=== PATIENT | male | born 1995 | race Caucasian/White ===

== ENCOUNTER 2017-06-02 12:06 | Emergency (ER) | payer OTHER ==
[2017-06-02 12:14] VITALS: BP 126/78
[2017-06-02] MEDS ORDERED: LIDOCAINE 2% 10 ML MDV ONE (12:34)
--- NOTE | 2017-06-02 12:53 | ED Physician Documentation ---
History of Present Illness - Stated complaint Stated Complaint: L ARM LAC - Chief complaint Chief Complaint: Laceration - History obtained from History obtained from: Patient (Patient is a 22-year-old [id number] male with no past medical history and tetanus prophylaxis less than 5 years who presents with a laceration to the left volar aspect of his forearm. It occurred slightly prior to arrival. This is a knife type wound that occurred when he was trying to open his [employer] container at work. He denies any numbness or tingling or loss of function distal to the laceration. Review of systems: For pertinent positive and negative questions for the review of systems please see history of present illness. Otherwise all other systems have been reviewed and are negative. Dragon disclaimer: Parts of this medical record were created using voice recognition technology. Because of the inherent limitations of this system occasional same sounding word substitutions do occur and persist despite proofreading. Please read the document for context.) PD PAST MEDICAL HISTORY - Past Surgical History Past Surgical History: No - Present Medications Home Medications: Ambulatory Orders Medication Instructions Recorded Confirmed No Known Home Medications [No 07/01/16 06/02/17 Known Home Medications] - Allergies Allergies/Adverse Reactions: Allergies Allergy/AdvReac Type Severity Reaction Status Date / Time No Known Drug Allergies Allergy Verified 07/01/16 19:30 - Social History Does the pt smoke?: No Smoking Status: Never smoker Does the pt drink ETOH?: No Does the pt have substance abuse?: No - Immunizations Immunizations are current?: Yes Immunizations: TDAP current <10years PD ED PE NORMAL - Vitals Vital signs reviewed: Yes - General General: Alert and oriented X 3, No acute distress, Well developed/nourished - Extremities Extremities: Other (On examination of the left forearm he has a 3.5 cm straight clean partial-thickness laceration approximately mid forearm that is transverse. Distally there is good coloration, pulses, normal tendon function.) Results - Vitals Vitals: Vital Signs - 24 hr 06/02/17 12:10 Temperature 36.9 C Heart Rate 72 Respiratory 18 Rate Blood Pressure 126/78 O2 Saturation 100 Oxygen O2 Source Room air PD MEDICAL DECISION MAKING - ED course ED course: Patient is a well-appearing 22-year-old man with a 3.5 cm laceration to left forearm. It is a shallow laceration through the epidermis and dermis but not deep to the fascia. The wound was cleansed, irrigated and anesthetized with lidocaine. He was then cleaned additionally with chlorhexidine. 6 single interrupted sutures of 5 oh Ethicon were users good approximation and hemostasis. Tetanus prophylaxis or antibiotics are not needed. The patient is released to regular duty. Disposition: To home Clinical impression: 1. 3.5 cm laceration left volar forearm status post suture closure Departure - Departure Disposition: 01 Home, Self Care Clinical Impression: Laceration Condition: Good Instructions: ED Laceration All Comments: Keep covered, clean, and dry. He may apply topical antibiotic ointment. Sutures should come out in 7-10 days
[2017-06-02] MEDS ORDERED: BACITRACIN OINT TOP ONE (12:56)
== END 2017-06-02 13:10 | disposition home or self-care (01) ==
LOC: ED 12:06
DX: S51.812A Laceration without foreign body of left forearm, initial encounter (principal); W26.0XXA Contact with knife, initial encounter; Y99.0 Civilian activity done for income or pay
CPT/HCPCS: 1040M; 12002; 99282; 99283; A9270

== ENCOUNTER 2017-11-12 21:42 | Emergency (ER) | payer OTHER ==
[2017-11-12 21:51] VITALS: BP 137/62
[2017-11-12] MEDS ORDERED: BACITRACIN OINT TOP STA (22:01)
[2017-11-12] MEDS ORDERED: HYDROcod/ACET 5/325 Prepack 6 PO STA (22:01)
--- NOTE | 2017-11-12 22:04 | ED Physician Documentation ---
PD HPI MAJOR BURN - Stated complaint Stated Complaint: HAND BURN - Chief complaint Chief Complaint: Ext Problem - History obtained from History obtained from: Patient, Family - History of Present Illness Timing - onset: Other (Right-handed gentleman, up-to-date on tetanus. He was at work tonight and got splashed with hot grease to the right hand and then grab something hot is a reaction and has francis to the right palm. No other injuries. Pain was severe but is now mild to moderate.) Review of Systems Constitutional: reports: Reviewed and negative Throat: reports: Reviewed and negative Cardiac: reports: Reviewed and negative PD PAST MEDICAL HISTORY - Past Medical History Past Medical History: No - Past Surgical History Past Surgical History: No - Present Medications Home Medications: Ambulatory Orders Medication Instructions Recorded Confirmed Bacitracin Zinc 2 gm TP BID #1 oint...g. 11/12/17 HYDROcod/ACETAM 5/325 [[place] 5/325] 1 - 2 ea PO Q6H PRN #10 tablet 11/12/17 - Allergies Allergies/Adverse Reactions: Allergies Allergy/AdvReac Type Severity Reaction Status Date / Time No Known Drug Allergies Allergy Verified 07/01/16 19:30 - Social History Does the pt smoke?: No Smoking Status: Never smoker Does the pt drink ETOH?: No Does the pt have substance abuse?: No - Immunizations Immunizations are current?: Yes Immunizations: TDAP current <10years - POLST Patient has POLST: No PD ED PE NORMAL - Vitals Vital signs reviewed: Yes - General General: Alert and oriented X 3, No acute distress - Abdomen Abdomen: Normal bowel sounds, Soft, Non tender - Extremities Extremities: Other (Scattered first and second-degree francis on the palm sparing the fingers, nothing circumferential.) - Neuro Neuro: Alert and oriented X 3, Normal speech - Psych Psych: Normal mood, Normal affect Results - Vitals Vitals: Vital Signs - 24 hr 11/12/17 11/12/17 21:46 21:51 Temperature 37.0 C Heart Rate 73 Respiratory 18 Rate Blood Pressure 137/62 H O2 Saturation 97 Oxygen O2 Source Room air Departure - Departure Disposition: 01 Home, Self Care Clinical Impression: Burn of right hand Qualifiers: Encounter type: initial encounter Burn of hand location: palm Burn degree: partial thickness (2nd degree) Qualified Code(s): T23.251A - Burn of second degree of right palm, initial encounter Condition: Good Record reviewed to determine appropriate education?: Yes Instructions: ED Burn D 2nd Prescriptions: Bacitracin Zinc 2 gm TP BID #1 oint...g. HYDROcod/ACETAM 5/325 [[place] 5/325] 1 - 2 ea PO Q6H PRN #10 tablet PRN Reason: Pain Comments: You can wash briefly with soap and water. Do the stretches to prevents loss of range of motion as you were shown extending the fingers. Return if worse or if he developed large blisters. Follow-up with your doctor in 3 days for wound check otherwise. Keep it dressed as shown with the bacitracin ointment under wrapping, not too tight. Elevated as well. Do not drink or drive while taking narcotic pain medication. Note that many narcotic pain relievers also contain Tylenol/acetaminophen. Please ensure that your total dose of acetaminophen from all sources does not exceed 3 g (3000 mg) per day. You may get constipated while on this medication. Take a stool softener such as Colace twice a day while you are on it. Also add an alkj-sep-zzlykeu laxative such as senna or MiraLAX on any day that you do not have a bowel movement. If you received a narcotic pain medication or sedative while in the emergency department, do not drive for the next 24 hours. Forms: Activity restrictions
== END 2017-11-12 22:09 | disposition home or self-care (01) ==
LOC: ED 21:42
DX: T23.251A Burn of second degree of right palm, initial encounter (principal); T31.0 Burns involving less than 10% of body surface; X10.2XXA Contact with fats and cooking oils, initial encounter; Y99.0 Civilian activity done for income or pay
CPT/HCPCS: 1040M; 99283; A9270

== ENCOUNTER 2018-09-14 14:14 | Emergency (ER) | payer SELFPAY ==
[2018-09-14] MEDS ORDERED: DEXAMETHASONE 10 MG/ML VIAL PO STA (14:47)
--- NOTE | 2018-09-14 14:49 | ED Physician Documentation ---
PD HPI URI - Stated complaint Stated Complaint: THROAT PX/NECK PX - Chief complaint Chief Complaint: General - History obtained from History obtained from: Patient, Family - History of Present Illness Timing - onset: How many days ago (4) Timing duration: Days (4) Timing details: Gradual onset, Still present Associated symptoms: Chills, Ear pain, Nasal congestion, Rhinorrhea, Sore throat, Dry cough Contributing factors: Sick contact (mother sick with similar) Improves by: Rest Similar symptoms before: Has not had sx before Recently seen: Not recently seen - Additional information Additional information: Previously well 23-year-old male has developed a cough and congestion about 4 days ago. He has developed a sore throat along with this and feels fatigued. He called off work today. His mother is sick with similar and she is usually required a course of antibiotic for resolution of her symptoms. She is in the emergency department today with her son. Review of Systems Constitutional: reports: Myalgias, Fatigue. denies: Fever Eyes: denies: Decreased vision Ears: reports: Ear pain Nose: reports: Rhinorrhea / runny nose, Congestion Throat: reports: Sore throat Cardiac: denies: Chest pain / pressure, Palpitations Respiratory: reports: Cough. denies: Dyspnea GI: denies: Vomiting PD PAST MEDICAL HISTORY - Past Medical History Past Medical History: No - Past Surgical History Past Surgical History: No - Present Medications Home Medications: Ambulatory Orders Medication Instructions Recorded Confirmed Azithromycin [Zithromax] 250 mg PO DAILY #6 tablet 09/14/18 - Allergies Allergies/Adverse Reactions: Allergies Allergy/AdvReac Type Severity Reaction Status Date / Time No Known Drug Allergies Allergy Verified 09/14/18 14:29 - Social History Does the pt smoke?: No Smoking Status: Never smoker Does the pt drink ETOH?: Yes Does the pt have substance abuse?: No - Immunizations Immunizations are current?: Yes Immunizations: TDAP current <10years - POLST Patient has POLST: No PD ED PE NORMAL - Vitals Vital signs reviewed: Yes (hypertensive mild ) - General General: Alert and oriented X 3, No acute distress, Well developed/nourished - HEENT HEENT: Atraumatic, PERRL, EOMI, Ears normal, Moist mucous membranes, Other (tonsils are 2 + with exudate ) - Neck Neck: Supple, no meningeal sign, No bony TTP, Other (tender submandibular adenopathy ) - Cardiac Cardiac: RRR, No murmur - Respiratory Respiratory: No respiratory distress, Clear bilaterally - Abdomen Abdomen: Soft, Non tender - Back Back: No CVA TTP, No spinal TTP - Derm Derm: Normal color, Warm and dry, No rash - Extremities Extremities: No deformity, No edema - Neuro Neuro: Alert and oriented X 3, wafer batter mixer 2-12 intact, No motor deficit, No sensory deficit, Normal speech Eye Opening: Spontaneous Motor: Obeys Commands Verbal: Oriented GCS Score: 15 - Psych Psych: Normal mood, Normal affect Results - Vitals Vitals: Vital Signs - 24 hr 09/14/18 14:27 Temperature 36.7 C Heart Rate 88 Respiratory 16 Rate Blood Pressure 138/75 H O2 Saturation 96 Oxygen O2 Source Room air PD MEDICAL DECISION MAKING - ED course Complexity details: reviewed old records, considered differential, d/w patient, d/w family ED course: 23-year-old male with an upper respiratory infection has 2+ exudative tonsils. He does not appear to have otitis media he does have some bronchitis. He is administered a dose of dexamethasone here in the emergency department we will place him on a Z-Jonnie. Departure - Departure Disposition: 01 Home, Self Care Clinical Impression: Tonsillitis Instructions: ED Tonsillitis Follow-Up: Your, doctor [Other] Prescriptions: Azithromycin [Zithromax] 250 mg PO DAILY #6 tablet
[2018-09-14 15:28] VITALS: BP 114/90
== END 2018-09-14 15:27 | disposition home or self-care (01) ==
LOC: ED 14:14
DX: J03.90 Acute tonsillitis, unspecified (principal); J40 Bronchitis, not specified as acute or chronic
CPT/HCPCS: 99283

== ENCOUNTER 2018-11-07 12:30 | Emergency (ER) | payer MEDICAID ==
[2018-11-07] MEDS ORDERED: ONDANSETRON ODT 4 MG TABLET TL STA (12:48)
[2018-11-07] MEDS ORDERED: IBUPROFEN 800 MG TABLET PO STA (12:48)
--- NOTE | 2018-11-07 12:49 | ED Physician Documentation ---
PD HPI PED ILLNESS - Stated complaint Stated Complaint: FEVER/CHILLS/HEADACHE/THROAT PX - Chief complaint Chief Complaint: General - History obtained from History obtained from: Patient - History of Present Illness Timing - onset: Last night (This is an otherwise healthy 23-year-old male Who became abruptly ill last night with body aches, hot and cold chills, sore throat, and headache with some nausea but no vomiting. 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 No recent travel.) Review of Systems Constitutional: reports: Fever, Chills, Myalgias, Fatigue Ears: denies: Ear pain Nose: denies: Rhinorrhea / runny nose Throat: reports: Sore throat GI: reports: Nausea. denies: Abdominal Pain, Vomiting, Diarrhea PD PAST MEDICAL HISTORY - Past Surgical History Past Surgical History: No - Present Medications Home Medications: Ambulatory Orders Medication Instructions Recorded Confirmed Ibuprofen [Motrin] 800 mg PO Q8H PRN #30 tablet 11/07/18 Ondansetron Odt [Zofran] 4 mg TL Q6H PRN #10 tablet 11/07/18 - Allergies Allergies/Adverse Reactions: Allergies Allergy/AdvReac Type Severity Reaction Status Date / Time No Known Drug Allergies Allergy Verified 11/07/18 12:40 - Social History Does the pt smoke?: No Smoking Status: Never smoker Does the pt drink ETOH?: Yes Does the pt have substance abuse?: No - Immunizations Immunizations are current?: Yes Immunizations: TDAP current <10years - POLST Patient has POLST: No PD ED PE NORMAL - Vitals Vital signs reviewed: Yes - General General: Alert and oriented X 3, No acute distress - HEENT HEENT: Pharynx benign - Neck Neck: Supple, no meningeal sign, No bony TTP, No adenopathy - Cardiac Cardiac: RRR, No murmur - Respiratory Respiratory: No respiratory distress, Clear bilaterally - Abdomen Abdomen: Non tender - Derm Derm: Normal color, Warm and dry - Neuro Neuro: Alert and oriented X 3, Normal speech - Psych Psych: Normal mood, Normal affect Results - Vitals Vitals: Vital Signs - 24 hr 11/07/18 12:38 Temperature 37.2 C Heart Rate 90 Respiratory 20 Rate Blood Pressure 140/76 H O2 Saturation 97 Oxygen O2 Source Room air - Labs Labs: Laboratory Tests 11/07/18 11/07/18 12:45 12:45 Influenza A (Rapid) Negative Influenza B (Rapid) Negative Group A Strep Rapid Negative PD MEDICAL DECISION MAKING - ED course ED course: This is a 23-year-old gentleman with symptoms consistent with viral or flulike syndrome. There is no evidence of toxicity. No meningismus. No abdominal tenderness. Flu and strep swabs were negative. Conservative care but watchful waiting was advised. Departure - Departure Disposition: Home, Self Care Clinical Impression: Viral syndrome Condition: Good Record reviewed to determine appropriate education?: Yes Instructions: ED Viral Syndrome Prescriptions: Ibuprofen [Motrin] 800 mg PO Q8H PRN #30 tablet PRN Reason: PAIN &/OR FEVER Ondansetron Odt [Zofran] 4 mg TL Q6H PRN #10 tablet PRN Reason: Nausea / Vomiting Comments: Return for any new or worsening symptoms, or if not better in 3 days. Your blood pressure was elevated today on check into the emergency department. This does not mean that you have hypertension, it is a common phenomenon to come to the emergency department and have elevated blood pressure. I recommend that you see your primary care physician within the week to have it rechecked when you are feeling better. Forms: Activity restrictions
[2018-11-07 13:28] VITALS: BP 132/76
== END 2018-11-07 13:28 | disposition home or self-care (01) ==
LOC: ED 12:30
DX: B34.9 Viral infection, unspecified (principal); R03.0 Elevated blood-pressure reading, without diagnosis of hypertension
CPT/HCPCS: 87070; 87275; 87276; 87430; 99283; A9270; Q0162

== ENCOUNTER 2018-11-22 10:55 | Emergency (ER) | payer MEDICAID ==
[2018-11-22 11:38] VITALS: BP 128/80
--- NOTE | 2018-11-22 12:40 | ED Physician Documentation ---
History of Present Illness - Stated complaint Stated Complaint: R EAR CLOGGED - Chief complaint Chief Complaint: Heent - History obtained from History obtained from: Patient - History of Present Illness Timing: Yesterday Pain level max: 8 Pain level now: 8 Improved by: nothing Worsened by: nothing - Additonal information Additional information: 23-year-old male with pain and muffled hearing to the right ear. Ongoing since yesterday. No fevers. No rhinorrhea, no congestion, no sore throat. Review of Systems Constitutional: denies: Fever, Chills Nose: denies: Rhinorrhea / runny nose, Congestion Respiratory: denies: Cough GI: denies: Nausea, Vomiting Skin: denies: Rash PD PAST MEDICAL HISTORY - Past Medical History Past Medical History: No - Past Surgical History Past Surgical History: No - Present Medications Home Medications: Ambulatory Orders Medication Instructions Recorded Confirmed Acetaminophen [Tylenol] 11/22/18 - Allergies Allergies/Adverse Reactions: Allergies Allergy/AdvReac Type Severity Reaction Status Date / Time No Known Drug Allergies Allergy Verified 11/22/18 11:38 - Social History Does the pt smoke?: No Smoking Status: Never smoker Does the pt drink ETOH?: Yes Does the pt have substance abuse?: No - Immunizations Immunizations are current?: Yes Immunizations: TDAP current <10years - POLST Patient has POLST: No PD ED PE NORMAL - Vitals Vital signs reviewed: Yes - General General: Alert and oriented X 3, No acute distress - HEENT HEENT: Moist mucous membranes, Other (L ear normal - R TM is obscured by impacted wax. ) - Neck Neck: Supple, no meningeal sign - Derm Derm: Warm and dry - Neuro Neuro: Alert and oriented X 3 Results - Vitals Vitals: Vital Signs - 24 hr 11/22/18 11:36 Temperature 36.4 C L Heart Rate 73 Respiratory 66 H Rate Blood Pressure 128/80 O2 Saturation 98 Oxygen O2 Source Room air PD MEDICAL DECISION MAKING - ED course Complexity details: considered differential, d/w patient ED course: 23-year-old male with cerumen impaction of the right ear. Her oxygen removed and feels better. Will follow up with PCP. Patient counseled regarding signs and symptoms for which I believe and urgent re-evaluation would be necessary. Patient with good understanding of and agreement to plan and is comfortable going home at this time This document was made in part using voice recognition software. While efforts are made to proofread this document, sound alike and grammatical errors may occur. Departure - Departure Disposition: 01 Home, Self Care Clinical Impression: Impacted cerumen of right ear Condition: Good Instructions: ED Earwax Removal, ED Wax Ear Home Removal Follow-Up: Provider,Other [Primary Care Provider] - As Needed Comments: Return if you worsen. Follow-up with your doctor for further care.
== END 2018-11-22 12:47 | disposition home or self-care (01) ==
LOC: ED 10:55
DX: H61.21 Impacted cerumen, right ear (principal)
CPT/HCPCS: 69209; 99282; 99283

== ENCOUNTER 2018-12-09 12:58 | Emergency (ER) | payer MEDICAID ==
[2018-12-09 13:26] LABS: BILIRUBIN,URINE NEGATIVE (NEGATIVE); GLUCOSE, URINE (UA) NEGATIVE (NEGATIVE); KETONES,URINE (UA) NEGATIVE (NEGATIVE); LEUKOCYTE ESTERASE, URINE NEGATIVE (NEGATIVE); NITRITE,URINE NEGATIVE (NEGATIVE); OCCULT BLOOD,URINE NEGATIVE (NEGATIVE); PROTEIN,URINE NEGATIVE (NEGATIVE); UROBILINOGEN,URINE 0.2 (NORMAL) E.U./dL (NORMAL)
[2018-12-09 13:28] LABS: CLARITY,URINE CLEAR (CLEAR)
[2018-12-09] MEDS ORDERED: cefTRIAXone 250 MG VIAL IM ONE (15:57)
[2018-12-09] MEDS ORDERED: LIDOCAINE 1% 2 ML VIAL SUBQ ONE (15:57)
[2018-12-09] MEDS ORDERED: AZITHROMYCIN 250 MG TABLET PO STA (15:57)
--- NOTE | 2018-12-09 15:59 | ED Physician Documentation ---
History of Present Illness - Stated complaint Stated Complaint: MALE - Chief complaint Chief Complaint: General - History obtained from History obtained from: Patient - History of Present Illness Timing: Other (About a week's worth of urinary frequency and burning at the tip when he urinates without discharge, pelvic pain, or flank pain. He admits to a history of sexual promiscuity.) Review of Systems Constitutional: reports: Reviewed and negative Cardiac: reports: Reviewed and negative Respiratory: reports: Reviewed and negative PD PAST MEDICAL HISTORY - Past Medical History Past Medical History: No Cardiovascular: None Respiratory: None Neuro: None Endocrine/Autoimmune: None GI: None : Nocturia, Frequency HEENT: None Psych: None Musculoskeletal: None Derm: None - Past Surgical History Past Surgical History: No - Present Medications Home Medications: Ambulatory Orders Medication Instructions Recorded Confirmed Acetaminophen [Tylenol] 11/22/18 - Allergies Allergies/Adverse Reactions: Allergies Allergy/AdvReac Type Severity Reaction Status Date / Time No Known Drug Allergies Allergy Verified 11/22/18 11:38 - Social History Does the pt smoke?: No Smoking Status: Never smoker Does the pt drink ETOH?: Yes Does the pt have substance abuse?: Yes Substance Use and Type: Marijuana - Immunizations Immunizations are current?: Yes Immunizations: TDAP current <10years - POLST Patient has POLST: No PD ED PE NORMAL - Vitals Vital signs reviewed: Yes - General General: Alert and oriented X 3, No acute distress - Abdomen Abdomen: Soft, Non tender - Back Back: No CVA TTP - Neuro Neuro: Alert and oriented X 3, Normal speech Results - Vitals Vitals: Vital Signs - 24 hr 12/09/18 12/09/18 13:06 15:09 Temperature 36 C L Heart Rate 62 66 Respiratory 16 16 Rate Blood Pressure 131/72 H 140/71 H O2 Saturation 97 99 Oxygen O2 Source Room air - Labs Labs: Laboratory Tests 12/09/18 13:19 Urine Color YELLOW Urine Clarity CLEAR Urine pH 6.0 Ur Specific [place] >=1.030 H Urine Protein NEGATIVE Urine Glucose (UA) NEGATIVE Urine Ketones NEGATIVE Urine Occult Blood NEGATIVE Urine Nitrite NEGATIVE Urine Bilirubin NEGATIVE Urine Urobilinogen 0.2 (NORMAL) Ur Leukocyte Esterase NEGATIVE Ur Microscopic Review NOT INDICATED Urine Culture Comments NOT INDICATED Departure - Departure Disposition: 01 Home, Self Care Clinical Impression: Urethritis Condition: Good Record reviewed to determine appropriate education?: Yes Instructions: ED Urethritis Infec Vs Inflam Male Comments: As discussed we are testing and treating for STDs that cause this clinical syndrome including chlamydia and gonorrhea. You are completely treated for either but we will still call if the test come is up positive. Your blood pressure was elevated today on check into the emergency department. This does not mean that you have hypertension, it is a common phenomenon to come to the emergency department and have elevated blood pressure. I recommend that you see your primary care physician within the week to have it rechecked when you are feeling better.
[2018-12-09 16:02] VITALS: BP 128/75
== END 2018-12-09 16:24 | disposition home or self-care (01) ==
LOC: ED 12:58
DX: N34.2 Other urethritis (principal); R03.0 Elevated blood-pressure reading, without diagnosis of hypertension
CPT/HCPCS: 81003; 87491; 87591; 96372; 99283; A9270; 81001; 87086

== ENCOUNTER 2019-04-23 16:39 | Emergency (ER) | payer MEDICAID ==
--- NOTE | 2019-04-23 17:19 | ED Physician Documentation ---
PD HPI MALE - Stated complaint Stated Complaint: MALE /NO SYMPTOMS - Chief complaint Chief Complaint: General - History obtained from History obtained from: Patient - History of Present Illness Timing - onset: How many weeks ago (2) Timing - duration: Weeks (2) Timing - details: Gradual onset Associated symptoms: Genital sore / lesion (noted redness and some tender along base of glans that has been there for 2 weeks, soon after having unprotected intercourse. Concerned about STD. No vesicles.). No: Dysuria, Urinary frequency PD HPI MALE CONTRIB FACTORS: Sexually active. No: Exposed to STD (no known exposure but had unprotected intercourse with new partner) Similar symptoms before: Has not had sx before Recently seen: Not recently seen Review of Systems Constitutional: denies: Fever Throat: denies: Oral lesions / sores, Sore throat : denies: Dysuria, Discharge Skin: reports: Rash PD PAST MEDICAL HISTORY - Past Medical History Past Medical History: No Cardiovascular: None Respiratory: None Neuro: None Endocrine/Autoimmune: None GI: None : None HEENT: None Psych: None Musculoskeletal: None Derm: None - Past Surgical History Past Surgical History: No - Present Medications Home Medications: Ambulatory Orders Medication Instructions Recorded Confirmed Acetaminophen [Tylenol] 11/22/18 Terbinafine HCl [Terbinafine] 1 applic TP TID #15 cream..g. 04/23/19 - Allergies Allergies/Adverse Reactions: Allergies Allergy/AdvReac Type Severity Reaction Status Date / Time No Known Drug Allergies Allergy Verified 04/23/19 16:44 - Social History Does the pt smoke?: No Smoking Status: Never smoker Does the pt drink ETOH?: Yes Does the pt have substance abuse?: No - Immunizations Immunizations are current?: Yes Immunizations: TDAP current <10years - POLST Patient has POLST: No PD ED PE NORMAL - Vitals Vital signs reviewed: Yes - General General: Alert and oriented X 3, Well developed/nourished - Male Male : Other (meatus normal. There is mild redness with sensitive but no vesicles nor skin breakdown along dorsal and side area of the base of the glans. scrotum normal. ) - Derm Derm: Normal color, Warm and dry Results - Vitals Vitals: Vital Signs - 24 hr 04/23/19 04/23/19 16:42 18:15 Temperature 37.0 C Heart Rate 78 64 Respiratory 14 12 Rate Blood Pressure 136/85 H 126/71 O2 Saturation 97 100 Oxygen O2 Source Room air - Labs Labs: Laboratory Tests 04/23/19 16:50 Chlam trachomat DNA PCR NEGATIVE N.gonorrhoeae DNA (PCR) NEGATIVE T. vaginalis (PCR) NEGATIVE PD MEDICAL DECISION MAKING - ED course Complexity details: considered differential (concerned about STD, with some redness and tenderness along base of glans. Clinically looks like mild candidal skin infection. Does not look herpetic. Did meatal swab to screen for STDs. ), d/w patient Departure - Departure Disposition: Home, Self Care Clinical Impression: Candidal balanitis Condition: Stable Record reviewed to determine appropriate education?: Yes Prescriptions: Terbinafine HCl [Terbinafine] 1 applic TP TID #15 cream..g. Comments: I think the red area looks more like a skin infection, likely yeast. It does not look herpetic. We did do a test for GC and chlamydia that will result in a few days and will call you if it is positive. At this point use an antifungal ointment to the area around the base of the glands 3 times a day and till cleared. It should clear in 2-3 days. Discharge Date/Time: 04/23/19 18:24
[2019-04-23 18:17] VITALS: BP 126/71
[2019-04-23 21:48] LABS: TRICHOMONAS VAGINALIS DNA NEGATIVE (NEGATIVE)
== END 2019-04-23 18:24 | disposition home or self-care (01) ==
LOC: ED 16:39
DX: B37.42 Candidal balanitis (principal)
CPT/HCPCS: 87491; 87591; 87661; 99283

== ENCOUNTER 2019-12-08 15:23 | Emergency (ER) | payer MEDICAID ==
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
[2019-12-08] MEDS ORDERED: cefTRIAXone 250 MG VIAL IM STA (16:58)
[2019-12-08] MEDS ORDERED: LIDOCAINE 1% 2 ML VIAL MC ONE (16:58)
[2019-12-08] MEDS ORDERED: AZITHROMYCIN 250 MG TABLET PO STA (16:58)
[2019-12-08 17:17] VITALS: BP 128/79
[2019-12-09 14:46] LABS: HIV AG/AB 4TH GEN NON-REACTIVE (NON-REACTIVE)
== END 2019-12-08 17:17 | disposition home or self-care (01) ==
LOC: ED 15:23
DX: A56.2 Chlamydial infection of genitourinary tract, unspecified (principal)
CPT/HCPCS: 86780; 87389; 87491; 87591; 96372; 99283; A9270; 87661

== ENCOUNTER 2020-01-09 10:58 | Emergency (ER) | payer SELFPAY ==
[2020-01-09 11:15] VITALS: BP 143/80
--- NOTE | 2020-01-09 11:55 | ED Physician Documentation ---
History of Present Illness - Stated complaint Stated Complaint: EARS BLOCKED - Chief complaint Chief Complaint: Heent - History obtained from History obtained from: Patient - History of Present Illness Timing: Today Pain level max: 0 Pain level now: 0 - Additonal information Additional information: 24-year-old male states that his ear is clogged with wax. Came in to have the wax removed. No fevers. No cough. Nothing makes it better or worse. Review of Systems Constitutional: denies: Fever Nose: denies: Rhinorrhea / runny nose, Congestion Throat: denies: Sore throat Cardiac: denies: Chest pain / pressure Respiratory: denies: Cough Skin: denies: Rash PD PAST MEDICAL HISTORY - Past Medical History Past Medical History: No Cardiovascular: None Respiratory: None Neuro: None Endocrine/Autoimmune: None GI: None : None HEENT: None Psych: None Musculoskeletal: None Derm: None - Past Surgical History Past Surgical History: No - Allergies Allergies/Adverse Reactions: Allergies Allergy/AdvReac Type Severity Reaction Status Date / Time No Known Drug Allergies Allergy Verified 01/09/20 11:07 - Social History Does the pt smoke?: No Smoking Status: Never smoker Does the pt drink ETOH?: Yes Does the pt have substance abuse?: No - Immunizations Immunizations are current?: Yes Immunizations: TDAP current <10years - POLST Patient has POLST: No PD ED PE NORMAL - Vitals Vital signs reviewed: Yes - General General: Alert and oriented X 3, No acute distress - HEENT HEENT: Moist mucous membranes, Other (Wax present in the bilateral ears. Nonocclusive bilaterally. Tympanic membrane's are normal) - Neck Neck: Supple, no meningeal sign - Derm Derm: Warm and dry - Neuro Neuro: Alert and oriented X 3 - Psych Psych: Normal mood, Normal affect Results - Vitals Vitals: Vital Signs - 24 hr 01/09/20 11:04 Temperature 36.7 C Heart Rate 77 Respiratory 16 Rate Blood Pressure 143/80 H O2 Saturation 100 Oxygen O2 Source Room air PD MEDICAL DECISION MAKING - ED course Complexity details: considered differential, d/w patient ED course: Patient requests his ears be irrigated. This was performed by the nurse. We wi ll have him follow-up with his doctor for further care. Patient counseled regarding signs and symptoms for which I believe and urgent re-evaluation would be necessary. Patient with good understanding of and agreement to plan and is comfortable going home at this time This document was made in part using voice recognition software. While efforts are made to proofread this document, sound alike and grammatical errors may occur. Departure - Departure Disposition: 01 Home, Self Care Clinical Impression: Impacted cerumen of both ears Condition: Good Instructions: ED Wax Ear Home Removal Follow-Up: your,doctor as needed [Other] Comments: You can use [id number] earwax products to help dissolve the wax. Follow- up with your doctor for further care
== END 2020-01-09 12:15 | disposition home or self-care (01) ==
LOC: ED 10:58
DX: H61.23 Impacted cerumen, bilateral (principal)
CPT/HCPCS: 99282; 99284

== ENCOUNTER 2020-11-12 16:17 | Emergency (ER) | payer SELFPAY ==
[2020-11-12 16:25] VITALS: BP 145/70
--- NOTE | 2020-11-12 16:31 | ED Physician Documentation ---
PD HPI MALE - Stated complaint Stated Complaint: MALE - Chief complaint Chief Complaint: UTI - History obtained from History obtained from: Patient - History of Present Illness Timing - onset: How many days ago (2-3) Timing - duration: Days (2-3) Timing - details: Gradual onset, Still present, Waxing and waning Associated symptoms: Urinary frequency (he feels that he has to urinate again frequently. Has had this episodically over years. Couple of times had been chlamydial infection. Other times had negative cultures/testings.). No: Discharge, Genital sore / lesion PD HPI MALE CONTRIB FACTORS: Sexually active (single partner most recently.) Recently seen: Not recently seen Review of Systems Constitutional: denies: Fever, Chills Nose: denies: Rhinorrhea / runny nose, Congestion Throat: denies: Sore throat Respiratory: denies: Cough Skin: denies: Rash, Lesions PD PAST MEDICAL HISTORY - Past Medical History Cardiovascular: None Respiratory: None Neuro: None Endocrine/Autoimmune: None GI: None : None HEENT: None Psych: None Musculoskeletal: None Derm: None - Past Surgical History Past Surgical History: No - Present Medications Home Medications: Ambulatory Orders Medication Instructions Recorded Confirmed Doxycycline Monohydrate 150 mg PO BID #14 capsule 11/12/20 Naproxen Sodium [Anaprox Ds] 550 mg PO BID #15 tablet 11/12/20 Phenazopyridine HCl [Pyridium] 100 mg PO TID PRN #20 tablet 11/12/20 - Allergies Allergies/Adverse Reactions: Allergies Allergy/AdvReac Type Severity Reaction Status Date / Time No Known Drug Allergies Allergy Verified 11/12/20 16:24 - Social History Does the pt smoke?: No Smoking Status: Never smoker Does the pt drink ETOH?: Yes Does the pt have substance abuse?: No - Immunizations Immunizations are current?: Yes Immunizations: TDAP current <10years - POLST Patient has POLST: No PD ED PE NORMAL - Vitals Vital signs reviewed: Yes - General General: Alert and oriented X 3, No acute distress, Well developed/nourished - Abdomen Abdomen: Soft, Non tender - Male Male : Other (normal appearing genitalia. No scrotal tenderness. ) - Back Back: No CVA TTP - Derm Derm: Normal color, Warm and dry Results - Vitals Vitals: Oxygen O2 Source Room air - Labs Labs: Laboratory Tests 11/12/20 11/12/20 16:54 16:59 Urine Color YELLOW Urine Clarity CLEAR Urine pH 7.0 Ur Specific [place] 1.020 Urine Protein NEGATIVE Urine Glucose (UA) NEGATIVE Urine Ketones NEGATIVE Urine Occult Blood NEGATIVE Urine Nitrite NEGATIVE Urine Bilirubin NEGATIVE Urine Urobilinogen 0.2 (NORMAL) Ur Leukocyte Esterase NEGATIVE Ur Microscopic Review NOT INDICATED Urine Culture Comments NOT INDICATED Chlam trachomat DNA PCR NEGATIVE N.gonorrhoeae DNA (PCR) NEGATIVE T. vaginalis (PCR) TNP PD MEDICAL DECISION MAKING - ED course Complexity details: considered differential (urinary urgency. Bladder scanner showing minimal residual. UA without infection. Consider recurrent chlamydial infection. Also consider interstitial cystitis. ), d/w patient Departure - Departure Disposition: 01 Home, Self Care Clinical Impression: Urinary frequency Condition: Stable Record reviewed to determine appropriate education?: Yes Instructions: ED Urethritis Infec Vs Inflam Male Follow-Up: Anders Redd MD [Provider Admit Priv/Credential] - Prescriptions: Naproxen Sodium [Anaprox Ds] 550 mg PO BID #15 tablet Doxycycline Monohydrate 150 mg PO BID #14 capsule Phenazopyridine HCl [Pyridium] 100 mg PO TID PRN #20 tablet PRN Reason: Abdominal Pain Comments: The urine cultures will result in 1-2 days. Can treat it as likely infection initially with Doxycycline antibiotic. However it may be an inflammatory cause of irritation of the bladder opening causing the feeling of having to urinate often. This can be treated with anti-inflammatory Naproxen twice daily, and also phenazopyridine to "numb" the bladder as it is cleared in the urine. Your bladder scanner showed minimal urine left in the bladder, so the problem is not urinary retention/incomplete emptying. Follow up with Urology regarding further evaluation of your symptoms. Recheck if not improved over the next week or so. Discharge Date/Time: 11/12/20 17:40
[2020-11-12] MEDS ORDERED: DOXYCYCLINE 100 MG TABLET PO STA (17:00)
[2020-11-12] MEDS ORDERED: PHENAZOPYRIDINE 100 MG TABLET PO STA (17:00)
[2020-11-12] MEDS ORDERED: IBUPROFEN 600 MG TABLET PO STA (17:00)
[2020-11-12 17:04] LABS: BILIRUBIN,URINE NEGATIVE (NEGATIVE); GLUCOSE, URINE (UA) NEGATIVE (NEGATIVE); KETONES,URINE (UA) NEGATIVE (NEGATIVE); LEUKOCYTE ESTERASE, URINE NEGATIVE (NEGATIVE); NITRITE,URINE NEGATIVE (NEGATIVE); OCCULT BLOOD,URINE NEGATIVE (NEGATIVE); PROTEIN,URINE NEGATIVE (NEGATIVE); UROBILINOGEN,URINE 0.2 (NORMAL) E.U./dL (NORMAL)
[2020-11-12 17:08] LABS: CLARITY,URINE CLEAR (CLEAR)
== END 2020-11-12 17:40 | disposition home or self-care (01) ==
LOC: ED 16:17
DX: R35.0 Frequency of micturition (principal)
CPT/HCPCS: 51798; 81003; 87491; 87591; 99283; 99284; A9270; 81001; 87086; 87661

== ENCOUNTER 2022-05-16 08:22 | Emergency (ER) | payer MEDICAID ==
[2022-05-16 08:30] VITALS: BP 123/82
--- OUTSIDE RECORDS SUMMARY | 2022-05-18 16:05 | EXTERNAL MEDICAL SUMMARY RPT | Continuity of Care Document ---
:1995 Author Organization [facility] Address [address] [phone] Phone Allergies No information. Encounters No information. Functional Status No information. Immunizations No information. Medications No information. Problems No information. Procedures date description facility +0000 Visit Code Hold [facility] [place] Results/Labs No information. Social History No information. Vital Signs date measurement value units +0000 BMI BMI 27.51 kg/m2 +0000 BP_diastolic BP_diastolic 88 mm[H g] +0000 BP_systolic BP_systolic 139 mm[Hg] +0000 heart_rate heart_rate 79 /min +0000 height_metric height_metric 170.18 cm +0000 height_standard height_standard 67 in +0000 respiration_rate respiration_rate 16 /min +0000 temperature_metric temperature_metric 36.78 C +0000 temperature_standard temperature_standard 9 8.2 F +0000 weight_metric weight_metric 79.38 kg +0000 weight_standard weight_standard 175 lb
== END 2022-05-16 11:07 | disposition left against medical advice (07) ==
LOC: ED 08:22
DX: Z53.21 Procedure and treatment not carried out due to patient leaving prior to being seen by health care provider (principal)

== ENCOUNTER 2022-11-19 13:55 | Emergency (ER) | payer MEDICAID ==
[2022-11-19 14:13] VITALS: BP 133/79
[2022-11-19 14:35] LABS: BILIRUBIN,URINE NEGATIVE (NEGATIVE); GLUCOSE, URINE (UA) NEGATIVE (NEGATIVE); KETONES,URINE (UA) NEGATIVE (NEGATIVE); LEUKOCYTE ESTERASE, URINE NEGATIVE (NEGATIVE); NITRITE,URINE NEGATIVE (NEGATIVE); OCCULT BLOOD,URINE NEGATIVE (NEGATIVE); PH,URINE 7.5 PH (5.0-7.5); PROTEIN,URINE NEGATIVE (NEGATIVE); UROBILINOGEN,URINE 0.2 (NORMAL) E.U./dL (NORMAL)
[2022-11-19 14:38] LABS: CLARITY,URINE CLEAR (CLEAR)
== END 2022-11-19 18:37 | disposition left against medical advice (07) ==
LOC: ED 13:55
DX: Z53.21 Procedure and treatment not carried out due to patient leaving prior to being seen by health care provider (principal)
CPT/HCPCS: 81001; 81003; 87086

== ENCOUNTER 2022-11-20 08:00 | Outpatient (CLI) | payer MEDICAID ==
[2022-11-20 21:25] LABS: CHLAMYDIA TRACHOMATIS DNA NEGATIVE (NEGATIVE); NEISSERIA GONORRHOEAE DNA NEGATIVE (NEGATIVE)
[2022-11-21 03:07] LABS: HCV AB 0.1 s/co ratio (0.0-0.9); HIV SCREEN 4TH GENERATION Non Reactive (Non Reactive)
[2022-11-21 06:08] LABS: RPR Non Reactive (Non Reactive)
[2022-11-21 13:09] LABS: HSV 1 IGG TYPE SPEC 6.25 index (0.00-0.90); HSV 2 IGG SUPPLEMENTAL TEST Positive (Negative); HSV 2 IGG TYPE SPEC 1.24 index (0.00-0.90)
== END 2022-11-20 23:59 | disposition home or self-care (01) ==
LOC: LAB.N 08:00
PROVIDERS: ATTEND Physician Assistant
DX: N48.9 Disorder of penis, unspecified (principal)
CPT/HCPCS: 36415; 86592; 86695; 86696; 86803; 87389; 87491; 87591; 87661

== ENCOUNTER 2023-06-21 12:15 | Outpatient (CLI) | payer MEDICAID | END 2023-06-21 12:30 | disposition home or self-care (01) | LOC: LAB.N 12:15 | PROVIDERS: ATTEND Specialist | DX: R07.0 Pain in throat (principal) | CPT/HCPCS: 87070 ==

== ENCOUNTER 2024-03-08 06:28 | Outpatient (CLI) | payer OTHER, MEDICAID | END 2024-03-08 23:59 | disposition EMS.NT | LOC: EMS 06:28 | DX: S01.511A Laceration without foreign body of lip, initial encounter (principal); R51.9 Headache, unspecified; Y04.2XXA Assault by strike against or bumped into by another person, initial encounter; Y92.511 Restaurant or cafe as the place of occurrence of the external cause; Y99.0 Civilian activity done for income or pay ==

== ENCOUNTER 2024-03-08 08:54 | Emergency (ER) | payer MEDICAID, OTHER ==
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
[2024-03-08] MEDS: ACETAMINOPHEN 500 MG TABLET PO STA (10:15)
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
[2024-03-08 11:41] VITALS: O2SAT 98
[2024-03-08] MEDS: HYDROcod/ACETAM 5/325 MG TABLET PO STA (11:52)
[2024-03-08 12:35] VITALS: BP 138/75
== END 2024-03-08 12:15 | disposition home or self-care (01) ==
LOC: ED 08:54
DX: S06.0X1A Concussion with loss of consciousness of 30 minutes or less, initial encounter (principal); S02.642A Fracture of ramus of left mandible, initial encounter for closed fracture; S00.83XA Contusion of other part of head, initial encounter; Y04.2XXA Assault by strike against or bumped into by another person, initial encounter; Y92.69 Other specified industrial and construction area as the place of occurrence of the external cause; Y99.0 Civilian activity done for income or pay
CPT/HCPCS: 70450; 70486; 72125; 99284; A9270